=== PATIENT | female | born 1965 | race American Indian/Alaskan Native ===

== ENCOUNTER 2017-08-21 05:19 | Day surgery (SDC) | payer MEDICAID, OTHER ==
[2017-08-21] MEDS ORDERED: fentaNYL 100 MCG/2 ML SDV IV ONE ×4 (05:20→06:48)
[2017-08-21] MEDS ORDERED: Midazolam 1 MG/ML 2 ML SDV IV ONE ×7 (05:20→06:45)
[2017-08-21] MEDS ORDERED: Sodium Chloride 0.9% 10 ML Syringe FLUSH PRN (06:00)
[2017-08-21] MEDS ORDERED: Dextrose 5%-0.45% NaCl 1,000 ML IV SCH (06:00)
[2017-08-21] MEDS ORDERED: Midazolam 1 MG/ML 2 ML SDV ONE (06:02)
[2017-08-21] MEDS ORDERED: fentaNYL 100 MCG/2 ML SDV ONE (06:03)
[2017-08-21 09:52] VITALS: BP 141/82
--- NOTE | 2017-08-21 12:28 | OR ---
DATE: 08/21/2017 PROCEDURES: Total colonoscopy and cold snare polypectomy. INSTRUMENT USED: CF-H180 Olympus video panendoscope. PREMEDICATIONS: Fentanyl 150 mcg intravenous, Versed 4 mg intravenous. The procedure was done under pulse oximetry, BP recording, and powderman. INDICATION: The patient with rectal bleeding and Hemoccult-positive stools. Colonoscopic examination is done for detection of any polypoid lesions and removal, endoscopic hemostasis therapy if needed. DESCRIPTION OF PROCEDURE: Initial rectal exam was unremarkable. Rigid anoscopy showed small internal hemorrhoids without bleeding from them. The colonoscope was passed with ease. A 3-mm sized benign-appearing polyp was noted in the proximal sigmoid. Photograph was taken. Cold snare polypectomy was done. The tissue was retrieved and sent for histopathology. Few diverticula were noted in the distal left colon along with deformity. The scope was passed with ease up to the ileocecal area. Photographs were taken of the normal-appearing cecum identified by landmarks of appendiceal orifice and double- bulged ileocecal folds. No bleeding was noted from any of the visualized areas at the commencement of the examination. No stricture. No vascular ectasia. No large isolated ulcerations seen. No evidence of diffuse inflammatory bowel disease in the form of friability, contact bleeding, or ulcerations. Probing the proximal sides of folds and flexures, using adequate distention and clearing of the stool material, withdrawal of the scope was made. Cecum to rectum time over 6 minutes. No bleeding was noted from any of the visualized areas at the completion of examination. IMPRESSION: 1. Internal hemorrhoids. 2. Diminutive sigmoid polyp. 3. Diverticulosis. The patient tolerated the procedure well. [facility] /[id number]
--- NOTE | 2017-08-21 13:37 | LETTER ---
08/21/2017 Amy Mccormack NP [facility] [address] [place] [address] RE: BRIANNA SALAMANCA : 1965 Dear Ms. Mccormack: Ms. Brianna Salamanca had colonoscopic examination done this morning and she tolerated the procedure well. I herewith send a copy of the endoscopy note and photographs for your review. Thank you, Sincerely, [facility] /[id number]
== END 2017-08-21 08:39 | disposition home or self-care (01) ==
LOC: DL.ENDO 05:19
PROVIDERS: ATTEND Internal Medicine Gastroenterology
DX: D12.5 Benign neoplasm of sigmoid colon (principal); K64.8 Other hemorrhoids; K57.30 Diverticulosis of large intestine without perforation or abscess without bleeding
CPT/HCPCS: 45385; J2250; J3010; J7042

== ENCOUNTER 2017-11-10 17:27 | Inpatient (IN) | payer MEDICAID, OTHER ==
--- NOTE | 2017-11-10 20:43 | EDM.PDOC ---
ED HPI GENERAL MEDICAL PROBLEM - General Chief Complaint: Skin Complaint Stated Complaint: [id number] LEG IS BIG AND RED Time Seen by Provider: 11/10/17 23:20 Source of Information: Reports: Patient History Limitations: Reports: No Limitations - History of Present Illness INITIAL COMMENTS - FREE TEXT/NARRATIVE: Left leg redness x 2 days, worse pain tonight. difficulty walking, may have scratched lower matute while "looking for alternator".Chills tonight, no fever, Denies hx of skin infection. Prior remote surgery to to left ankle, hardware was removed Left Lower Leg Pain Score (Numeric/FACES): 8 - Related Data Allergies Allergy/AdvReac Type Severity Reaction Status Date / Time celecoxib [From Celebrex] Allergy Other Verified 11/10/17 23:13 naproxen Allergy Rash Verified 11/10/17 23:13 nitrofurantoin Allergy Rash Verified 11/10/17 23:13 Home Meds: Home Meds Carboxymethylcell/Glycerin/Pf [Refresh Optive Sensitive Drops] 1 drop EYEBOTH ASDIRECTED PRN 02/26/17 [History] Cetirizine HCl [24Hour Allergy] 10 mg PO DAILY 02/26/17 [History] Methyl Salicylate/Menth/Camph [Bengay Ultra Strength] 1 squirt TOP ASDIRECTED PRN 02/26/17 [History] Montelukast [Singulair] 10 mg PO BEDTIME 02/26/17 [History] Past Medical History - Past Health History Medical/Surgical History: Denies Medical/Surgical History HEENT History: Reports: Allergic Rhinitis Cardiovascular History: Reports: None Respiratory History: Reports: Asthma Gastrointestinal History: Reports: Chronic Diarrhea, Hepatitis, Other (See Below ) Other Gastrointestinal History: Hx of Hepatitis C. Genitourinary History: Reports: None OUTSIDE DELIVERER History: Reports: None Musculoskeletal History: Reports: Arthritis, Neck Pain, Chronic, Other (See Below) Other Musculoskeletal History: Degenerative Joint Disease. Neurological History: Reports: None Psychiatric History: Reports: None Endocrine/Metabolic History: Reports: None Hematologic History: Reports: None Immunologic History: Reports: None Oncologic (Cancer) History: Reports: None Dermatologic History: Reports: None - Infectious Disease History Infectious Disease History: Reports: Chicken Pox, Hepatitis C, Measles, Mumps - Past Surgical History Head Surgeries/Procedures: Reports: None HEENT Surgical History: Reports: None Cardiovascular Surgical History: Reports: None Respiratory Surgical History: Reports: None GI Surgical History: Reports: Appendectomy, Colonoscopy Female Surgical History: Reports: Section, Hysterectomy, Tubal Ligation Endocrine Surgical History: Reports: None Neurological Surgical History: Reports: None Musculoskeletal Surgical History: Reports: Other (See Below) Other Musculoskeletal Surgeries/Procedures:: Left Ankle Fx. Oncologic Surgical History: Reports: None Dermatological Surgical History: Reports: None Social & Family History - Family History Family Medical History: Noncontributory Oncologic: Reports: Breast, Colon, Prostate - Tobacco Use Smoking Status *Q: Never Smoker Second Hand Smoke Exposure: No - Caffeine Use Caffeine Use: Reports: Coffee, Soda, Tea Caffeine Use Comment: 1-2 cups daily - Alcohol Use Days Per Week of Alcohol Use: 0 - Recreational Drug Use Recreational Drug Use: No Drug Use in Last 12 Months: No ED ROS GENERAL - Review of Systems Review Of Systems: See Below Constitutional: Reports: Chills Respiratory: Reports: No Symptoms Cardiovascular: Reports: No Symptoms GI/Abdominal: Reports: No Symptoms Skin: Reports: Bruising, Erythema, Change in Color, Lumps Neurological: Reports: No Symptoms ED EXAM, SKIN/RASH Exam: See Below Exam Limited By: No Limitations General Appearance: Alert, Mild Distress Eye Exam: Bilateral Eye: EOMI Ears: Normal External Exam Nose: Normal Inspection Throat/Mouth: Normal Inspection, Normal Gums Head: Atraumatic, Normocephalic Neck: Normal Inspection, Full Range of Motion Respiratory/Chest: No Respiratory Distress, Lungs Clear, Normal Breath Sounds Cardiovascular: Normal Peripheral Pulses, Regular Rate, Rhythm GI/Abdominal: Normal Bowel Sounds, Soft Extremities: Pedal Edema, Leg Pain, Increased Warmth, Redness. No: Thao's Sign Neurological: Alert, Oriented, Normal Cognition Psychiatric: Normal Affect, Normal Mood Skin: Warm, Dry, Intact Characteristics: Other (anterior matute red warm to touch with streaking up inner knee, tenderabove ankle to above knee, no open area) Associated features: Warmth, Tenderness, Swelling, Induration, Inflammation Course - Vital Signs Last Recorded V/S: Last Vital Signs Temp 98.0 F 11/10/17 23:24 Pulse 77 11/10/17 23:24 Resp 16 11/10/17 23:24 BP 128/77 11/10/17 23:24 Pulse Ox 99 11/10/17 23:24 - Orders/Labs/Meds Orders: Active Orders 24 hr Category Date Time Status BASIC METABOLIC PANEL,BMP [CHEM] AM Lab 11/11/17 05:11 Ordered CBC WITH AUTO DIFF [HEME] AM Lab 11/11/17 05:15 Ordered CULTURE BLOOD [BC] Stat Lab 11/10/17 20:50 Received CULTURE BLOOD [BC] Stat Lab 11/10/17 20:55 Results DRUG SCREEN URINE BIORAD [URCHEM] Stat Lab 11/10/17 23:20 Ordered MAGNESIUM [CHEM] AM Lab 11/11/17 05:11 Ordered PHOSPHORUS [CHEM] AM Lab 11/11/17 05:11 Ordered UA W/MICROSCOPIC [URIN] Stat Lab 11/10/17 23:20 Ordered Blood Culture x2 Reflex Set [OM.PC] Stat Oth 11/10/17 20:38 Ordered Medication Orders Acetaminophen (Tylenol) 650 mg PO Q4H PRN PRN Reason: pain,. fever Heparin Sodium (Porcine) (Heparin Sodium) 5,000 units SUBCUT Q8HR ERICA Piperacillin Sod/Tazobactam (Sod 3.375 gm/ Sodium Chloride) 100 mls @ 200 mls/ hr IV Q6H [facility] Last Admin: 11/11/17 01:37 Dose: 200 mls/hr Vancomycin HCl 1 gm/ Sodium (Chloride) 250 mls @ 166.667 mls/hr IV Q8H [facility] Last Admin: 11/10/17 23:56 Dose: 166.667 mls/hr Oxycodone HCl (Oxycodone) 5 mg PO Q6H PRN PRN Reason: severe pain Sodium Chloride (Saline Flush) 10 ml FLUSH ASDIRECTED PRN PRN Reason: Keep Vein Open Vancomycin HCl (Pharmacy To Dose - Vancomycin) 1 dose .XX ASDIRECTED ERICA Zolpidem Tartrate (Ambien) 5 mg PO BEDTIME PRN PRN Reason: Sleep Last Admin: 11/11/17 00:01 Dose: 5 mg Labs: Laboratory Tests 11/10/17 11/10/17 11/10/17 Range/Units 20:50 20:50 20:50 WBC 12.9 H (5.0-10.0) 10^3/uL RBC 3.87 L (4.2-5.4) 10^6/uL Hgb 11.8 L (12.0-16.0) g/dL Hct 35.2 L (37.0-47.0) % MCV 91.0 (80-100) fL MCH 30.5 (27.0-34.0) pg MCHC 33.5 (33.0-35.0) g/dL Plt Count 238 (150-450) 10^3/uL Neut % (Auto) 76.4 H (42.2-75.2) % Lymph % (Auto) 12.7 L (20.5-50.1) % [place] % (Auto) 10.2 H (2-8) % Eos % (Auto) 0.5 L (1.0-3.0) % Baso % (Auto) 0.2 (0.0-1.0) % D-Dimer, Quantitative (0-400) ng/mL Sodium 133 L (135-145) mmol/L Potassium 2.6 L (3.6-5.0) mmol/L Chloride 100 L (101-111) mmol/L Carbon Dioxide 28.0 (21.0-31.0) mmol/L Anion Gap 7.6 BUN 7 (7-18) mg/dL Creatinine 0.5 L (0.6-1.3) mg/dL Est Cr Clr Drug Dosing 121.81 mL/min Estimated GFR (MDRD) > 60 BUN/Creatinine Ratio 14.00 Glucose 93 (74-105) mg/dL Lactic Acid 1.4 (0.5-2.2) mmol/L Calcium 8.5 (8.4-10.2) mg/dl Total Bilirubin 1.3 H (0.2-1.0) mg/dL AST 86 H (10-42) IU/L ALT 46 (10-60) IU/L Alkaline Phosphatase 65 (42-121) IU/L Total Protein 8.5 H (6.7-8.2) g/dl Albumin 3.2 (3.2-5.5) g/dl Globulin 5.3 Albumin/Globulin Ratio 0.60 Urine Color (YELLOW) Urine Appearance (CLEAR) Urine pH (5.0-9.0) Ur Specific [place] (1.005-1.030) Urine Protein (NEGATIVE) Urine Glucose (UA) (NEGATIVE) Urine Ketones (NEGATIVE) Urine Occult Blood (NEGATIVE) Urine Nitrite (NEGATIVE) Urine Bilirubin (NEGATIVE) Urine Urobilinogen (0.2-1.0) mg/dL Ur Leukocyte Esterase (NEGATIVE) Urine RBC /HPF Urine WBC (0-5/HPF) /HPF Ur Epithelial Cells /HPF Urine Bacteria (0-FEW/HPF) /HPF Urine Mucus /LPF Urine Opiates Screen (NEGATIVE) Ur Oxycodone Screen (NEGATIVE) Urine Methadone Screen (NEGATIVE) Ur Barbiturates Screen (NEGATIVE) U Tricyclic Antidepress (NEGATIVE) Ur Phencyclidine Scrn (NEGATIVE) Ur Amphetamine Screen (NEGATIVE) U Methamphetamines Scrn (NEGATIVE) Urine MDMA Screen (NEGATIVE) U Benzodiazepines Scrn (NEGATIVE) Urine Cocaine Screen (NEGATIVE) U Marijuana (THC) Screen (NEGATIVE) 11/10/17 11/10/17 11/10/17 Range/Units 20:50 23:20 23:20 WBC (5.0-10.0) 10^3/uL RBC (4.2-5.4) 10^6/uL Hgb (12.0-16.0) g/dL Hct (37.0-47.0) % MCV (80-100) fL MCH (27.0-34.0) pg MCHC (33.0-35.0) g/dL Plt Count (150-450) 10^3/uL Neut % (Auto) (42.2-75.2) % Lymph % (Auto) (20.5-50.1) % [place] % (Auto) (2-8) % Eos % (Auto) (1.0-3.0) % Baso % (Auto) (0.0-1.0) % D-Dimer, Quantitative 300 (0-400) ng/mL Sodium (135-145) mmol/L Potassium (3.6-5.0) mmol/L Chloride (101-111) mmol/L Carbon Dioxide (21.0-31.0) mmol/L Anion Gap BUN (7-18) mg/dL Creatinine (0.6-1.3) mg/dL Est Cr Clr Drug Dosing mL/min Estimated GFR (MDRD) BUN/Creatinine Ratio Glucose (74-105) mg/dL Lactic Acid (0.5-2.2) mmol/L Calcium (8.4-10.2) mg/dl Total Bilirubin (0.2-1.0) mg/dL AST (10-42) IU/L ALT (10-60) IU/L Alkaline Phosphatase (42-121) IU/L Total Protein (6.7-8.2) g/dl Albumin (3.2-5.5) g/dl Globulin Albumin/Globulin Ratio Urine Color Yellow (YELLOW) Urine Appearance Slightly cloudy (CLEAR) Urine pH 6.5 (5.0-9.0) Ur Specific [place] 1.020 (1.005-1.030) Urine Protein Negative (NEGATIVE) Urine Glucose (UA) Negative (NEGATIVE) Urine Ketones 15 H (NEGATIVE) Urine Occult Blood Negative (NEGATIVE) Urine Nitrite Negative (NEGATIVE) Urine Bilirubin Small H (NEGATIVE) Urine Urobilinogen 4.0 H (0.2-1.0) mg/dL Ur Leukocyte Esterase Small H (NEGATIVE) Urine RBC 0-5 /HPF Urine WBC 10-20 H (0-5/HPF) /HPF Ur Epithelial Cells Moderate H /HPF Urine Bacteria Many H (0-FEW/HPF) /HPF Urine Mucus Moderate H /LPF Urine Opiates Screen Negative (NEGATIVE) Ur Oxycodone Screen Negative (NEGATIVE) Urine Methadone Screen Negative (NEGATIVE) Ur Barbiturates Screen Negative (NEGATIVE) U Tricyclic Antidepress Negative (NEGATIVE) Ur Phencyclidine Scrn Negative (NEGATIVE) Ur Amphetamine Screen Positive H (NEGATIVE) U Methamphetamines Scrn Positive H (NEGATIVE) Urine MDMA Screen Positive H (NEGATIVE) U Benzodiazepines Scrn Negative (NEGATIVE) Urine Cocaine Screen Negative (NEGATIVE) U Marijuana (THC) Screen Negative (NEGATIVE) Meds: Medications Generic Name Dose Route Start Last Admin Trade Name Freq PRN Reason Stop Dose Admin Acetaminophen 650 mg 11/10/17 23:33 Tylenol PO Q4H PRN pain,. fever Heparin Sodium (Porcine) 5,000 units 11/11/17 06:00 Heparin Sodium SUBCUT Q8HR ERICA Piperacillin Sod/Tazobactam 100 mls @ 200 mls/hr 11/10/17 23:30 11/11/17 01: 37 Sod 3.375 gm/ Sodium Chloride IV 200 mls/hr Q6H ERICA Administration Vancomycin HCl 1 gm/ Sodium 250 mls @ 166.667 mls/hr 11/11/17 00:00 11/10/17 23:56 Chloride IV 166.667 mls/hr Q8H ERICA Administration Oxycodone HCl 5 mg 11/10/17 23:24 Oxycodone PO Q6H PRN severe pain Sodium Chloride 10 ml 11/10/17 23:24 Saline Flush FLUSH ASDIRECTED PRN Keep Vein Open Vancomycin HCl 1 dose 11/10/17 23:30 Pharmacy To Dose - Vancomycin .XX ASDIRECTED ERICA Zolpidem Tartrate 5 mg 11/10/17 23:24 11/11/17 00:01 Ambien PO 5 mg BEDTIME PRN Administration Sleep Discontinued Medications Generic Name Dose Route Start Last Admin Trade Name Freq PRN Reason Stop Dose Admin Potassium Chloride 20 meq/ 100 mls @ 50 mls/hr 11/10/17 22:06 Premix IV 11/11/17 00:05 ONETIME ONE Potassium Chloride 10 meq/ 100 mls @ 100 mls/hr 11/10/17 22:06 11/10/17 22:18 Premix IV 11/10/17 23:05 100 mls/hr ONETIME ONE Administration Sodium Chloride 1,000 mls @ 250 mls/hr 11/10/17 22:12 11/10/17 22:18 Normal Saline IV 11/11/17 02:11 250 mls/hr .BOLUS ONE Administration Ibuprofen 400 mg 11/10/17 23:23 Motrin PO Q6H PRN moderate pain Potassium Chloride 20 meq 11/10/17 22:10 11/10/17 22:20 Klor-Con 10 PO 11/10/17 22:11 20 meq ONETIME ONE Administration Potassium Chloride 40 meq 11/10/17 23:21 11/10/17 23:47 Klor-Con 10 PO 11/10/17 23:22 40 meq ONETIME ONE Administration Departure - Departure Time of Disposition: 22:40 Disposition: Admitted As Inpatient 65 Condition: Undetermined Clinical Impression: Methamphetamine abuse, Hypokalemia Cellulitis Qualifiers: Site of cellulitis: extremity Site of cellulitis of extremity: lower extremity Laterality: left Qualified Code(s): L03.116 - Cellulitis of left lower limb - Discharge Information - My Orders Last 24 Hours: My Active Orders 11/10/17 20:38 Blood Culture x2 Reflex Set [OM.PC] Stat 11/10/17 20:50 CULTURE BLOOD [BC] Stat 11/10/17 20:55 CULTURE BLOOD [BC] Stat 11/10/17 23:20 DRUG SCREEN URINE BIORAD [URCHEM] Stat UA W/MICROSCOPIC [URIN] Stat - Assessment/Plan Last 24 Hours: My Active Orders 11/10/17 20:38 Blood Culture x2 Reflex Set [OM.PC] Stat 11/10/17 20:50 CULTURE BLOOD [BC] Stat 11/10/17 20:55 CULTURE BLOOD [BC] Stat 11/10/17 23:20 DRUG SCREEN URINE BIORAD [URCHEM] Stat UA W/MICROSCOPIC [URIN] Stat
[2017-11-10 21:41] LABS: CHLORIDE,CL 100 mmol/L (101-111); SODIUM,NA 133 mmol/L (135-145)
[2017-11-10] MEDS ORDERED: Potassium Chloride 20 MEQ in Premix Bag 1 BAG IV ONE (22:06)
[2017-11-10] MEDS ORDERED: Potassium Chloride 10 MEQ in Premix Bag 1 BAG IV ONE (22:06)
[2017-11-10] MEDS ORDERED: Potassium Chloride 10 MEQ Tab.ER PO ONE ×2 (22:10→23:21)
[2017-11-10] MEDS ORDERED: Sodium Chloride 0.9% 1,000 ML IV ONE (22:12)
[2017-11-10] MEDS ORDERED: Ibuprofen 400 MG Tab PO PRN (23:23)
[2017-11-10] MEDS ORDERED: Acetaminophen 325 MG Tab PO PRN (23:33)
--- NOTE | 2017-11-10 23:33 | PCM.HP ---
H&P History of Present Illness - General Date of Service: 11/10/17 Admit Problem/Dx: Admission Diagnosis/Problem Admission Diagnosis/Problem Cellulitis Source of Information: Patient History Limitations: Reports: No Limitations - History of Present Illness Initial Comments - Free Text/Narative: The patient is a 52-year-old lady with a history of arthritis. The patient developed left lower extremity swelling associated with pain, redness. This started the 3-4 days prior to admission. The patient went feels that she might have hit the anterior matute area. Small bruise was noted. No associated fever. The redness and swelling has been worsening in the past few days and the patient came into the emergency room. No chest pain, no shortness of breath, no abdominal pain. Left Lower Leg Pain Score (Numeric/FACES): 8 - Related Data Allergies/Adverse Reactions: Allergies Allergy/AdvReac Type Severity Reaction Status Date / Time celecoxib [From Celebrex] Allergy Other Verified 11/10/17 23:13 naproxen Allergy Rash Verified 11/10/17 23:13 nitrofurantoin Allergy Rash Verified 11/10/17 23:13 Home Medications: Home Meds Carboxymethylcell/Glycerin/Pf [Refresh Optive Sensitive Drops] 1 drop EYEBOTH ASDIRECTED PRN 02/26/17 [History] Cetirizine HCl [24Hour Allergy] 10 mg PO DAILY 02/26/17 [History] Methyl Salicylate/Menth/Camph [Bengay Ultra Strength] 1 squirt TOP ASDIRECTED PRN 02/26/17 [History] Montelukast [Singulair] 10 mg PO BEDTIME 02/26/17 [History] Past Medical History - Past Health History Medical/Surgical History: Denies Medical/Surgical History HEENT History: Reports: Allergic Rhinitis Cardiovascular History: Reports: None Respiratory History: Reports: Asthma Gastrointestinal History: Reports: Chronic Diarrhea, Hepatitis, Other (See Below ) Other Gastrointestinal History: Hx of Hepatitis C. Genitourinary History: Reports: None [employer] History: Reports: None Musculoskeletal History: Reports: Arthritis, Neck Pain, Chronic, Other (See Below) Other Musculoskeletal History: Degenerative Joint Disease. Neurological History: Reports: None Psychiatric History: Reports: None Endocrine/Metabolic History: Reports: None Hematologic History: Reports: None Immunologic History: Reports: None Oncologic (Cancer) History: Reports: None Dermatologic History: Reports: None - Infectious Disease History Infectious Disease History: Reports: Chicken Pox, Hepatitis C, Measles, Mumps - Past Surgical History Head Surgeries/Procedures: Reports: None HEENT Surgical History: Reports: None Cardiovascular Surgical History: Reports: None Respiratory Surgical History: Reports: None GI Surgical History: Reports: Appendectomy, Colonoscopy Female Surgical History: Reports: Section, Hysterectomy, Tubal Ligation Endocrine Surgical History: Reports: None Neurological Surgical History: Reports: None Musculoskeletal Surgical History: Reports: Other (See Below) Other Musculoskeletal Surgeries/Procedures:: Left Ankle Fx. Oncologic Surgical History: Reports: None Dermatological Surgical History: Reports: None Social & Family History - Family History Family Medical History: Noncontributory Oncologic: Reports: Breast, Colon, Prostate - Tobacco Use Smoking Status *Q: Never Smoker Second Hand Smoke Exposure: No - Caffeine Use Caffeine Use: Reports: Coffee, Soda, Tea Caffeine Use Comment: 1-2 cups daily - Alcohol Use Days Per Week of Alcohol Use: 0 - Recreational Drug Use Recreational Drug Use: No Drug Use in Last 12 Months: No H&P Review of Systems - Review of Systems: Review Of Systems: See Below General: Denies: Fever Pulmonary: Denies: Shortness of Breath Cardiovascular: Reports: Edema. Denies: Chest Pain Gastrointestinal: Denies: Abdominal Pain (Left leg) Genitourinary: Denies: Dysuria Skin: Reports: Other (Left lower extremity with swelling, redness, tenderness.) . Denies: Cyanosis Neurological: Denies: Confusion Exam - Exam Exam: See Below - Vital Signs Vital Signs: Last Vital Signs Temp 36.7 C 11/10/17 23:24 Pulse 77 11/10/17 23:24 Resp 16 11/10/17 23:24 BP 128/77 11/10/17 23:24 Pulse Ox 99 11/10/17 23:24 Weight: 86.863 kg - Exam Quality Assessment: No: Supplemental Oxygen General: Alert, Oriented Neck: Supple Lungs: Clear to Auscultation, Normal Respiratory Effort Cardiovascular: Regular Rate, Regular Rhythm GI/Abdominal Exam: Normal Bowel Sounds, Soft, Non-Tender Extremities: Pedal Edema (Left lower extremity) - Patient Data Lab Results Last 24 hrs: Laboratory Results - last 24 hr 11/10/17 11/10/17 11/10/17 Range/Units 20:50 20:50 20:50 WBC 12.9 H (5.0-10.0) 10^3/uL RBC 3.87 L (4.2-5.4) 10^6/uL Hgb 11.8 L (12.0-16.0) g/dL Hct 35.2 L (37.0-47.0) % MCV 91.0 (80-100) fL MCH 30.5 (27.0-34.0) pg MCHC 33.5 (33.0-35.0) g/dL Plt Count 238 (150-450) 10^3/uL Neut % (Auto) 76.4 H (42.2-75.2) % Lymph % (Auto) 12.7 L (20.5-50.1) % [place] % (Auto) 10.2 H (2-8) % Eos % (Auto) 0.5 L (1.0-3.0) % Baso % (Auto) 0.2 (0.0-1.0) % D-Dimer, Quantitative (0-400) ng/mL Sodium 133 L (135-145) mmol/L Potassium 2.6 L (3.6-5.0) mmol/L Chloride 100 L (101-111) mmol/L Carbon Dioxide 28.0 (21.0-31.0) mmol/L Anion Gap 7.6 BUN 7 (7-18) mg/dL Creatinine 0.5 L (0.6-1.3) mg/dL Est Cr Clr Drug Dosing 121.81 mL/min Estimated GFR (MDRD) > 60 BUN/Creatinine Ratio 14.00 Glucose 93 (74-105) mg/dL Lactic Acid 1.4 (0.5-2.2) mmol/L Calcium 8.5 (8.4-10.2) mg/dl Total Bilirubin 1.3 H (0.2-1.0) mg/dL AST 86 H (10-42) IU/L ALT 46 (10-60) IU/L Alkaline Phosphatase 65 (42-121) IU/L Total Protein 8.5 H (6.7-8.2) g/dl Albumin 3.2 (3.2-5.5) g/dl Globulin 5.3 Albumin/Globulin Ratio 0.60 //18 Range/Units 20:50 WBC (5.0-10.0) 10^3/uL RBC (4.2-5.4) 10^6/uL Hgb (12.0-16.0) g/dL Hct (37.0-47.0) % MCV (80-100) fL MCH (27.0-34.0) pg MCHC (33.0-35.0) g/dL Plt Count (150-450) 10^3/uL Neut % (Auto) (42.2-75.2) % Lymph % (Auto) (20.5-50.1) % [place] % (Auto) (2-8) % Eos % (Auto) (1.0-3.0) % Baso % (Auto) (0.0-1.0) % D-Dimer, Quantitative 300 (0-400) ng/mL Sodium (135-145) mmol/L Potassium (3.6-5.0) mmol/L Chloride (101-111) mmol/L Carbon Dioxide (21.0-31.0) mmol/L Anion Gap BUN (7-18) mg/dL Creatinine (0.6-1.3) mg/dL Est Cr Clr Drug Dosing mL/min Estimated GFR (MDRD) BUN/Creatinine Ratio Glucose (74-105) mg/dL Lactic Acid (0.5-2.2) mmol/L Calcium (8.4-10.2) mg/dl Total Bilirubin (0.2-1.0) mg/dL AST (10-42) IU/L ALT (10-60) IU/L Alkaline Phosphatase (42-121) IU/L Total Protein (6.7-8.2) g/dl Albumin (3.2-5.5) g/dl Globulin Albumin/Globulin Ratio Result Diagrams: 11/10/17 20:50 11/10/17 20:50 Iker Results Last 24 hrs: Microbiology 11/10/17 20:55 Anaerobic Blood Culture - Final Blood - Venous - Lab Draw - Problem List (1) Cellulitis SNOMED Code(s): 579907167 ICD Code: L03.90 - CELLULITIS, UNSPECIFIED Status: Acute Current Visit: Yes (2) Hypokalemia SNOMED Code(s): 39216394 ICD Code: E87.6 - HYPOKALEMIA Status: Acute Current Visit: Yes Problem List Initiated/Reviewed/Updated: Yes Orders Last 24hrs: Active Orders 24 hr Category Date Time Status Patient Status [ADT] Routine ADT 11/10/17 23:24 Ordered Oxygen Therapy [RC] PRN Care 11/10/17 23:24 Ordered Peripheral IV Care [RC] . DIRECTED Care 11/10/17 23:26 Ordered Up With Assistance [RC] ASDIRECTED Care 11/10/17 23:24 Ordered VTE/DVT Education [RC] PER UNIT ROUTINE Care 11/10/17 23:24 Ordered Vital Signs [RC] Q4H Care 11/10/17 23:24 Ordered Regular Diet [DIET] Diet 11/10/17 Breakfast Ordered BASIC METABOLIC PANEL,BMP [CHEM] AM Lab 11/11/17 05:15 Ordered CBC WITH AUTO DIFF [HEME] AM Lab 11/11/17 05:15 Ordered CULTURE BLOOD [BC] Stat Lab 11/10/17 20:50 Received CULTURE BLOOD [BC] Stat Lab 11/10/17 20:55 Results DRUG SCREEN URINE BIORAD [URCHEM] Stat Lab 11/10/17 22:09 Ordered MAGNESIUM [CHEM] AM Lab 11/11/17 05:11 Ordered PHOSPHORUS [CHEM] AM Lab 11/11/17 05:11 Ordered UA W/MICROSCOPIC [URIN] Stat Lab 11/10/17 22:09 Ordered Heparin Sodium Med 11/11/17 06:00 Ordered 5,000 units SUBCUT Q8HR Ibuprofen [Motrin] Med 11/10/17 23:23 Ordered 400 mg PO Q6H PRN Piperacillin/Tazobactam [Zosyn] 3.375 gm Med 11/10/17 23:30 Ordered Sodium Chloride 0.9% [Normal Saline] 100 ml IV Q6H Sodium Chloride 0.9% [Normal Saline] 1,000 ml Med 11/10/17 22:12 Active IV .BOLUS Sodium Chloride 0.9% [Saline Flush] Med 11/10/17 23:24 Ordered 10 ml FLUSH ASDIRECTED PRN Vancomycin Pharmacy to Dose [Pharmacy to Dose - Med 11/10/17 23:30 Ordered Vancomycin] 1 dose .XX ASDIRECTED Zolpidem [Ambien] Med 11/10/17 23:24 Ordered 5 mg PO BEDTIME PRN oxyCODONE Med 11/10/17 23:24 Ordered 5 mg PO Q6H PRN Antiembolic Hose [OM.PC] Per Unit Routine Oth 11/10/17 23:25 Ordered Blood Culture x2 Reflex Set [OM.PC] Stat Oth 11/10/17 20:38 Ordered Peripheral IV Insertion Adult [OM.PC] Routine Oth 11/10/17 23:24 Ordered Saline Lock Insert [OM.PC] Routine Oth 11/10/17 23:24 Ordered Resuscitation Status Routine Resus Stat 11/10/17 23:24 Ordered Medication Orders Heparin Sodium (Porcine) (Heparin Sodium) 5,000 units SUBCUT Q8HR ERICA Sodium Chloride (Normal Saline) 1,000 mls @ 250 mls/hr IV .BOLUS ONE Stop: 11/11/17 02:11 Last Admin: 11/10/17 22:18 Dose: 250 mls/hr Piperacillin Sod/Tazobactam (Sod 3.375 gm/ Sodium Chloride) 100 mls @ 200 mls/ hr IV Q6H ERICA Ibuprofen (Motrin) 400 mg PO Q6H PRN PRN Reason: moderate pain Oxycodone HCl (Oxycodone) 5 mg PO Q6H PRN PRN Reason: severe pain Sodium Chloride (Saline Flush) 10 ml FLUSH ASDIRECTED PRN PRN Reason: Keep Vein Open Vancomycin HCl (Pharmacy To Dose - Vancomycin) 1 dose .XX ASDIRECTED ERICA Zolpidem Tartrate (Ambien) 5 mg PO BEDTIME PRN PRN Reason: Sleep Assessment/Plan Comment:: The patient is a 52-year-old lady with a history of arthritis. The patient developed left lower extremity swelling associated with pain, redness. This started the 3-4 days prior to admission. The patient went feels that she might have hit the anterior matute area. Small bruise was noted. No associated fever. The redness and swelling has been worsening in the past few days and the patient came into the emergency room. #1 left lower extremity cellulitis. There is associated swelling, redness. Will obtain blood cultures. The patient is from an area where MRSA is common. Will treat with Zosyn, vancomycin. #2 severe hypokalemia The patient already received IV supplement We will give further oral potassium supplement. Recheck electrolytes including potassium, magnesium, phosphorus in the morning. #3 DVT prophylaxis with subcutaneous heparin
[2017-11-11] MEDS: Zolpidem 5 MG Tab PO PRN (00:01)
[2017-11-11] MEDS: Piperacillin/Tazobactam 3.375 GM in Sodium Chloride 0.9% 100 ML IV SCH ×5 (01:37→20:10)
[2017-11-11] MEDS: Heparin Sodium 5,000 Units/ML Vial SUBCUT SCH ×3 (05:58→20:40)
[2017-11-11 07:07] LABS: CHLORIDE,CL 107 mmol/L (101-111); SODIUM,NA 138 mmol/L (135-145)
[2017-11-11] MEDS: Vancomycin 1 GM SDV ONE ×3 (09:35→14:12)
[2017-11-11] MEDS: Sodium Chloride 0.9% 10 ML Syringe FLUSH PRN ×2 (09:40→18:29)
--- NOTE | 2017-11-11 11:41 | PCM.PN ---
- General Info Date of Service: 11/11/17 Admission Dx/Problem (Free Text): Admission Diagnosis/Problem Admission Diagnosis/Problem Cellulitis Subjective Update: Feeling better, the left lower extremity redness H was moderate has been improving. The redness started a few days prior to admission. There is mild to moderate associated pain. No significant drainage. the scab At the anterior matute area is improving. Functional Status: Reports: Pain Controlled - Review of Systems General: Denies: Fever, Weakness Pulmonary: Denies: Shortness of Breath Cardiovascular: Reports: Edema. Denies: Chest Pain Genitourinary: Denies: Dysuria Neurological: Denies: Confusion - Patient Data Vitals - Most Recent: Last Vital Signs Temp 36.3 C 11/11/17 11:03 Pulse 68 11/11/17 11:03 Resp 20 11/11/17 11:03 BP 107/72 11/11/17 11:03 Pulse Ox 97 11/11/17 11:03 Weight - Most Recent: 86.863 kg I&O - Last 24 Hours: Intake & Output 11/10/17 11/11/17 11/11/17 22:59 06:59 14:59 Intake Total 1465 465 Output Total 300 Balance 1165 465 Lab Results Last 24 Hours: Laboratory Results - last 24 hr 11/10/17 11/10/17 11/10/17 Range/Units 20:50 20:50 20:50 WBC 12.9 H (5.0-10.0) 10^3/uL RBC 3.87 L (4.2-5.4) 10^6/uL Hgb 11.8 L (12.0-16.0) g/dL Hct 35.2 L (37.0-47.0) % MCV 91.0 (80-100) fL MCH 30.5 (27.0-34.0) pg MCHC 33.5 (33.0-35.0) g/dL Plt Count 238 (150-450) 10^3/uL Neut % (Auto) 76.4 H (42.2-75.2) % Lymph % (Auto) 12.7 L (20.5-50.1) % [place] % (Auto) 10.2 H (2-8) % Eos % (Auto) 0.5 L (1.0-3.0) % Baso % (Auto) 0.2 (0.0-1.0) % D-Dimer, Quantitative (0-400) ng/mL Sodium 133 L (135-145) mmol/L Potassium 2.6 L (3.6-5.0) mmol/L Chloride 100 L (101-111) mmol/L Carbon Dioxide 28.0 (21.0-31.0) mmol/L Anion Gap 7.6 BUN 7 (7-18) mg/dL Creatinine 0.5 L (0.6-1.3) mg/dL Est Cr Clr Drug Dosing 121.81 mL/min Estimated GFR (MDRD) > 60 BUN/Creatinine Ratio 14.00 Glucose 93 (74-105) mg/dL Lactic Acid 1.4 (0.5-2.2) mmol/L Calcium 8.5 (8.4-10.2) mg/dl Phosphorus (2.5-4.6) mg/dL Magnesium (1.8-2.5) mg/dL Total Bilirubin 1.3 H (0.2-1.0) mg/dL AST 86 H (10-42) IU/L ALT 46 (10-60) IU/L Alkaline Phosphatase 65 (42-121) IU/L Total Protein 8.5 H (6.7-8.2) g/dl Albumin 3.2 (3.2-5.5) g/dl Globulin 5.3 Albumin/Globulin Ratio 0.60 Urine Color (YELLOW) Urine Appearance (CLEAR) Urine pH (5.0-9.0) Ur Specific Alexander (1.005-1.030) Urine Protein (NEGATIVE) Urine Glucose (UA) (NEGATIVE) Urine Ketones (NEGATIVE) Urine Occult Blood (NEGATIVE) Urine Nitrite (NEGATIVE) Urine Bilirubin (NEGATIVE) Urine Urobilinogen (0.2-1.0) mg/dL Ur Leukocyte Esterase (NEGATIVE) Urine RBC /HPF Urine WBC (0-5/HPF) /HPF Ur Epithelial Cells /HPF Urine Bacteria (0-FEW/HPF) /HPF Urine Mucus /LPF Urine Opiates Screen (NEGATIVE) Ur Oxycodone Screen (NEGATIVE) Urine Methadone Screen (NEGATIVE) Ur Barbiturates Screen (NEGATIVE) U Tricyclic Antidepress (NEGATIVE) Ur Phencyclidine Scrn (NEGATIVE) Ur Amphetamine Screen (NEGATIVE) U Methamphetamines Scrn (NEGATIVE) Urine MDMA Screen (NEGATIVE) U Benzodiazepines Scrn (NEGATIVE) Urine Cocaine Screen (NEGATIVE) U Marijuana (THC) Screen (NEGATIVE) 11/10/17 11/10/17 11/10/17 Range/Units 20:50 23:20 23:20 WBC (5.0-10.0) 10^3/uL RBC (4.2-5.4) 10^6/uL Hgb (12.0-16.0) g/dL Hct (37.0-47.0) % MCV (80-100) fL MCH (27.0-34.0) pg MCHC (33.0-35.0) g/dL Plt Count (150-450) 10^3/uL Neut % (Auto) (42.2-75.2) % Lymph % (Auto) (20.5-50.1) % [place] % (Auto) (2-8) % Eos % (Auto) (1.0-3.0) % Baso % (Auto) (0.0-1.0) % D-Dimer, Quantitative 300 (0-400) ng/mL Sodium (135-145) mmol/L Potassium (3.6-5.0) mmol/L Chloride (101-111) mmol/L Carbon Dioxide (21.0-31.0) mmol/L Anion Gap BUN (7-18) mg/dL Creatinine (0.6-1.3) mg/dL Est Cr Clr Drug Dosing mL/min Estimated GFR (MDRD) BUN/Creatinine Ratio Glucose (74-105) mg/dL Lactic Acid (0.5-2.2) mmol/L Calcium (8.4-10.2) mg/dl Phosphorus (2.5-4.6) mg/dL Magnesium (1.8-2.5) mg/dL Total Bilirubin (0.2-1.0) mg/dL AST (10-42) IU/L ALT (10-60) IU/L Alkaline Phosphatase (42-121) IU/L Total Protein (6.7-8.2) g/dl Albumin (3.2-5.5) g/dl Globulin Albumin/Globulin Ratio Urine Color Yellow (YELLOW) Urine Appearance Slightly cloudy (CLEAR) Urine pH 6.5 (5.0-9.0) Ur Specific Alexander 1.020 (1.005-1.030) Urine Protein Negative (NEGATIVE) Urine Glucose (UA) Negative (NEGATIVE) Urine Ketones 15 H (NEGATIVE) Urine Occult Blood Negative (NEGATIVE) Urine Nitrite Negative (NEGATIVE) Urine Bilirubin Small H (NEGATIVE) Urine Urobilinogen 4.0 H (0.2-1.0) mg/dL Ur Leukocyte Esterase Small H (NEGATIVE) Urine RBC 0-5 /HPF Urine WBC 10-20 H (0-5/HPF) /HPF Ur Epithelial Cells Moderate H /HPF Urine Bacteria Many H (0-FEW/HPF) /HPF Urine Mucus Moderate H /LPF Urine Opiates Screen Negative (NEGATIVE) Ur Oxycodone Screen Negative (NEGATIVE) Urine Methadone Screen Negative (NEGATIVE) Ur Barbiturates Screen Negative (NEGATIVE) U Tricyclic Antidepress Negative (NEGATIVE) Ur Phencyclidine Scrn Negative (NEGATIVE) Ur Amphetamine Screen Positive H (NEGATIVE) U Methamphetamines Scrn Positive H (NEGATIVE) Urine MDMA Screen Positive H (NEGATIVE) U Benzodiazepines Scrn Negative (NEGATIVE) Urine Cocaine Screen Negative (NEGATIVE) U Marijuana (THC) Screen Negative (NEGATIVE) 11/11/17 11/11/17 Range/Units 06:27 06:27 WBC 8.2 (5.0-10.0) 10^3/uL RBC 3.54 L (4.2-5.4) 10^6/uL Hgb 11.0 L (12.0-16.0) g/dL Hct 32.8 L (37.0-47.0) % MCV 92.7 (80-100) fL MCH 31.1 (27.0-34.0) pg MCHC 33.5 (33.0-35.0) g/dL Plt Count 202 (150-450) 10^3/uL Neut % (Auto) 72.8 (42.2-75.2) % Lymph % (Auto) 14.5 L (20.5-50.1) % [place] % (Auto) 11.1 H (2-8) % Eos % (Auto) 1.5 (1.0-3.0) % Baso % (Auto) 0.1 (0.0-1.0) % D-Dimer, Quantitative (0-400) ng/mL Sodium 138 (135-145) mmol/L Potassium 3.1 L (3.6-5.0) mmol/L Chloride 107 (101-111) mmol/L Carbon Dioxide 26.0 (21.0-31.0) mmol/L Anion Gap 8.1 BUN 5 L (7-18) mg/dL Creatinine 0.5 L (0.6-1.3) mg/dL Est Cr Clr Drug Dosing 121.81 mL/min Estimated GFR (MDRD) > 60 BUN/Creatinine Ratio Glucose 116 H (74-105) mg/dL Lactic Acid (0.5-2.2) mmol/L Calcium 7.9 L (8.4-10.2) mg/dl Phosphorus 3.5 (2.5-4.6) mg/dL Magnesium 1.7 L (1.8-2.5) mg/dL Total Bilirubin (0.2-1.0) mg/dL AST (10-42) IU/L ALT (10-60) IU/L Alkaline Phosphatase (42-121) IU/L Total Protein (6.7-8.2) g/dl Albumin (3.2-5.5) g/dl Globulin Albumin/Globulin Ratio Urine Color (YELLOW) Urine Appearance (CLEAR) Urine pH (5.0-9.0) Ur Specific Alexander (1.005-1.030) Urine Protein (NEGATIVE) Urine Glucose (UA) (NEGATIVE) Urine Ketones (NEGATIVE) Urine Occult Blood (NEGATIVE) Urine Nitrite (NEGATIVE) Urine Bilirubin (NEGATIVE) Urine Urobilinogen (0.2-1.0) mg/dL Ur Leukocyte Esterase (NEGATIVE) Urine RBC /HPF Urine WBC (0-5/HPF) /HPF Ur Epithelial Cells /HPF Urine Bacteria (0-FEW/HPF) /HPF Urine Mucus /LPF Urine Opiates Screen (NEGATIVE) Ur Oxycodone Screen (NEGATIVE) Urine Methadone Screen (NEGATIVE) Ur Barbiturates Screen (NEGATIVE) U Tricyclic Antidepress (NEGATIVE) Ur Phencyclidine Scrn (NEGATIVE) Ur Amphetamine Screen (NEGATIVE) U Methamphetamines Scrn (NEGATIVE) Urine MDMA Screen (NEGATIVE) U Benzodiazepines Scrn (NEGATIVE) Urine Cocaine Screen (NEGATIVE) U Marijuana (THC) Screen (NEGATIVE) Iker Results Last 24 Hours: Microbiology 11/10/17 20:55 Anaerobic Blood Culture - Final Blood - Venous - Lab Draw Med Orders - Current: Current Medications Acetaminophen (Tylenol) 650 mg PO Q4H PRN PRN Reason: pain,. fever Heparin Sodium (Porcine) (Heparin Sodium) 5,000 units SUBCUT Q8HR [facility] Last Admin: 11/11/17 05:58 Dose: 5,000 units Piperacillin Sod/Tazobactam (Sod 3.375 gm/ Sodium Chloride) 100 mls @ 200 mls/ hr IV Q6H [facility] Last Admin: 11/11/17 05:55 Dose: 200 mls/hr Vancomycin HCl 1 gm/ Sodium (Chloride) 250 mls @ 166.667 mls/hr IV Q8H [facility] Oxycodone HCl (Oxycodone) 5 mg PO Q6H PRN PRN Reason: severe pain Sodium Chloride (Saline Flush) 10 ml FLUSH ASDIRECTED PRN PRN Reason: Keep Vein Open Last Admin: 11/11/17 09:40 Dose: 10 ml Vancomycin HCl (Pharmacy To Dose - Vancomycin) 1 dose .XX ASDIRECTED [facility] Zolpidem Tartrate (Ambien) 5 mg PO BEDTIME PRN PRN Reason: Sleep Last Admin: 11/11/17 00:01 Dose: 5 mg Discontinued Medications Potassium Chloride 20 meq/ (Premix) 100 mls @ 50 mls/hr IV ONETIME ONE Stop: 11/11/17 00:05 Potassium Chloride 10 meq/ (Premix) 100 mls @ 100 mls/hr IV ONETIME ONE Stop: 11/10/17 23:05 Last Admin: 11/10/17 22:18 Dose: 100 mls/hr Sodium Chloride (Normal Saline) 1,000 mls @ 250 mls/hr IV .BOLUS ONE Stop: 11/11/17 02:11 Last Admin: 11/10/17 22:18 Dose: 250 mls/hr Vancomycin HCl 1 gm/ Sodium (Chloride) 250 mls @ 166.667 mls/hr IV Q8H [facility] Last Admin: 11/10/17 23:56 Dose: 166.667 mls/hr Ibuprofen (Motrin) 400 mg PO Q6H PRN PRN Reason: moderate pain Potassium Chloride (Klor-Con 10) 20 meq PO ONETIME ONE Stop: 11/10/17 22:11 Last Admin: 11/10/17 22:20 Dose: 20 meq Potassium Chloride (Klor-Con 10) 40 meq PO ONETIME ONE Stop: 11/10/17 23:22 Last Admin: 11/10/17 23:47 Dose: 40 meq Vancomycin HCl (Vancomycin) Confirm Administered Dose 1 gm .ROUTE .STK-MED ONE Stop: 11/11/17 09:33 Last Admin: 11/11/17 09:39 Dose: 1 gm - Exam General: Alert, Oriented Lungs: Clear to Auscultation, Normal Respiratory Effort Cardiovascular: Regular Rate, Regular Rhythm GI/Abdominal Exam: Normal Bowel Sounds, Soft, Non-Tender Extremities: Pedal Edema (Left lower extremity) Skin: Warm, Ecchymosis, Other (Redness of the left upper extremity) Neurological: No New Focal Deficit Psy/Mental Status: Alert, Normal Affect, Normal Mood - Problem List & Annotations (1) Cellulitis SNOMED Code(s): 772270235 Code(s): L03.90 - CELLULITIS, UNSPECIFIED Status: Acute Current Visit: Yes Qualifiers: Site of cellulitis: extremity Site of cellulitis of extremity: lower extremity Laterality: left Qualified Code(s): L03.116 - Cellulitis of left lower limb (2) Hypokalemia SNOMED Code(s): 29087777 Code(s): E87.6 - HYPOKALEMIA Status: Acute Current Visit: Yes - Problem List Review Problem List Initiated/Reviewed/Updated: Yes - My Orders Last 24 Hours: My Active Orders 11/10/17 23:20 CULTURE URINE [RM] Routine 11/10/17 23:24 Patient Status [ADT] Routine Oxygen Therapy [RC] PRN Up With Assistance [RC] ASDIRECTED VTE/DVT Education [RC] PER UNIT ROUTINE Vital Signs [RC] Q4H Sodium Chloride 0.9% [Saline Flush] 10 ml FLUSH ASDIRECTED PRN Zolpidem [Ambien] 5 mg PO BEDTIME PRN oxyCODONE 5 mg PO Q6H PRN Peripheral IV Insertion Adult [OM.PC] Routine Saline Lock Insert [OM.PC] Routine Resuscitation Status Routine 11/10/17 23:25 Antiembolic Hose [OM.PC] Per Unit Routine 11/10/17 23:26 Peripheral IV Care [RC] . DIRECTED 11/10/17 23:30 Piperacillin/Tazobactam [Zosyn] 3.375 gm Sodium Chloride 0.9% [Normal Saline] 100 ml IV Q6H Vancomycin Pharmacy to Dose [Pharmacy to Dose - Vancomycin] 1 dose .XX ASDIRECTED 11/10/17 23:33 Acetaminophen [Tylenol] 650 mg PO Q4H PRN 11/11/17 06:00 Heparin Sodium 5,000 units SUBCUT Q8HR 11/11/17 11:00 Vancomycin 1 gm Sodium Chloride 0.9% [Normal Saline] 250 ml IV Q8H 11/11/17 11:50 Magnesium Oxide 250 mg PO BIDM Potassium Chloride [Klor-Con 10] 40 meq PO BIDMEALS 11/12/17 05:15 BASIC METABOLIC PANEL,BMP [CHEM] AM CBC WITH AUTO DIFF [HEME] AM 11/12/17 07:30 VANCOMYCIN TROUGH [CHEM] Timed - Plan Plan:: The patient is a 52-year-old lady with a history of arthritis. The patient developed left lower extremity swelling associated with pain, redness. This started the 3-4 days prior to admission. The patient went feels that she might have hit the anterior matute area. Small bruise was noted. No associated fever. The redness and swelling has been worsening in the past few days and the patient came into the emergency room. #1 left lower extremity cellulitis. There is associated swelling, redness. blood cultures: pending The patient is from an area where MRSA is common. Will continue to treat with Zosyn, vancomycin. #2 severe hypokalemia Improving We will give further oral potassium supplement. Hypomagnesemia We'll replace Recheck electrolytes including potassium, magnesium, phosphorus in the morning. #3 DVT prophylaxis with subcutaneous heparin
[2017-11-11] MEDS: Potassium Chloride 10 MEQ Tab.ER PO SCH ×2 (12:45→17:15)
[2017-11-11] MEDS: oxyCODONE 5 MG Tab PO PRN (13:55)
[2017-11-12] MEDS: Piperacillin/Tazobactam 3.375 GM in Sodium Chloride 0.9% 100 ML IV SCH ×2 (01:38→08:19)
[2017-11-12] MEDS: Heparin Sodium 5,000 Units/ML Vial SUBCUT SCH ×4 (05:52→22:00)
[2017-11-12 07:14] LABS: CHLORIDE,CL 109 mmol/L (101-111); SODIUM,NA 136 mmol/L (135-145)
[2017-11-12] MEDS: Sodium Chloride 0.9% 10 ML Syringe FLUSH PRN ×4 (08:20→22:01)
[2017-11-12] MEDS: oxyCODONE 5 MG Tab PO PRN ×2 (09:59→18:34)
--- NOTE | 2017-11-12 11:21 | PCM.PN ---
- General Info Date of Service: 11/12/17 Admission Dx/Problem (Free Text): Admission Diagnosis/Problem Admission Diagnosis/Problem Cellulitis Subjective Update: No new complaints today. Still has redness and swelling of the left lower extremity. It has improved compared to yesterday. No nausea and no vomiting - Review of Systems General: Reports: Weakness Pulmonary: Reports: No Symptoms Cardiovascular: Reports: No Symptoms Gastrointestinal: Reports: No Symptoms, Abdominal Pain Musculoskeletal: Reports: Leg Pain Skin: Reports: Bruising - Patient Data Vitals - Most Recent: Last Vital Signs Temp 37.1 C 11/12/17 10:58 Pulse 67 11/12/17 10:58 Resp 17 11/12/17 10:58 BP 100/52 L 11/12/17 10:58 Pulse Ox 96 11/12/17 10:58 Weight - Most Recent: 86.863 kg I&O - Last 24 Hours: Intake & Output 11/11/17 11/12/17 11/12/17 22:59 06:59 14:59 Intake Total 1500 600 340 Output Total 1000 900 390 Balance 500 -300 -50 Lab Results Last 24 Hours: Laboratory Results - last 24 hr 11/12/17 11/12/17 11/12/17 Range/Units 06:25 06:25 10:28 WBC 7.0 (5.0-10.0) 10^3/uL RBC 3.62 L (4.2-5.4) 10^6/uL Hgb 11.2 L (12.0-16.0) g/dL Hct 34.6 L (37.0-47.0) % MCV 95.6 (80-100) fL MCH 30.9 (27.0-34.0) pg MCHC 32.4 L (33.0-35.0) g/dL Plt Count 224 (150-450) 10^3/uL Neut % (Auto) 64.5 (42.2-75.2) % Lymph % (Auto) 22.9 (20.5-50.1) % Hubbard % (Auto) 8.3 H (2-8) % Eos % (Auto) 4.0 H (1.0-3.0) % Baso % (Auto) 0.3 (0.0-1.0) % Sodium 136 (135-145) mmol/L Potassium 3.7 (3.6-5.0) mmol/L Chloride 109 (101-111) mmol/L Carbon Dioxide 24.0 (21.0-31.0) mmol/L Anion Gap 6.7 BUN 5 L (7-18) mg/dL Creatinine 0.5 L (0.6-1.3) mg/dL Est Cr Clr Drug Dosing 121.81 mL/min Estimated GFR (MDRD) > 60 Glucose 141 H (74-105) mg/dL Calcium 8.0 L (8.4-10.2) mg/dl Phosphorus 3.0 (2.5-4.6) mg/dL Magnesium 1.8 (1.8-2.5) mg/dL Vancomycin Trough 12.6 (10-15) ug/ml Iker Results Last 24 Hours: Microbiology 11/10/17 23:20 Urine Culture - Preliminary Urine, Clean Catch 11/10/17 20:55 Aerobic Blood Culture - Preliminary Blood - Venous - Lab Draw NO GROWTH AFTER 1 DAY Anaerobic Blood Culture - Final 11/10/17 20:50 Aerobic Blood Culture - Preliminary Blood - Venous NO GROWTH AFTER 1 DAY Anaerobic Blood Culture - Preliminary NO GROWTH AFTER 1 DAY Med Orders - Current: Current Medications Acetaminophen (Tylenol) 650 mg PO Q4H PRN PRN Reason: pain,. fever Heparin Sodium (Porcine) (Heparin Sodium) 5,000 units SUBCUT Q8HR [facility] Last Admin: 11/12/17 05:53 Dose: 5,000 units Vancomycin HCl 1 gm/ Sodium (Chloride) 250 mls @ 166.667 mls/hr IV Q8H [facility] Last Admin: 11/12/17 02:10 Dose: 166.667 mls/hr Piperacillin Sod/Tazobactam (Sod 3.375 gm/ Sodium Chloride) 100 mls @ 200 mls/ hr IV Q6H [facility] Last Admin: 11/12/17 08:19 Dose: 200 mls/hr Oxycodone HCl (Oxycodone) 5 mg PO Q6H PRN PRN Reason: severe pain Last Admin: 11/12/17 09:59 Dose: 5 mg Sodium Chloride (Saline Flush) 10 ml FLUSH ASDIRECTED PRN PRN Reason: Keep Vein Open Last Admin: 11/12/17 08:20 Dose: 10 ml Vancomycin HCl (Pharmacy To Dose - Vancomycin) 1 dose .XX ASDIRECTED [facility] Zolpidem Tartrate (Ambien) 5 mg PO BEDTIME PRN PRN Reason: Sleep Last Admin: 11/11/17 00:01 Dose: 5 mg Discontinued Medications Potassium Chloride 20 meq/ (Premix) 100 mls @ 50 mls/hr IV ONETIME ONE Stop: 11/11/17 00:05 Potassium Chloride 10 meq/ (Premix) 100 mls @ 100 mls/hr IV ONETIME ONE Stop: 11/10/17 23:05 Last Admin: 11/10/17 22:18 Dose: 100 mls/hr Sodium Chloride (Normal Saline) 1,000 mls @ 250 mls/hr IV .BOLUS ONE Stop: 11/11/17 02:11 Last Admin: 11/10/17 22:18 Dose: 250 mls/hr Piperacillin Sod/Tazobactam (Sod 3.375 gm/ Sodium Chloride) 100 mls @ 200 mls/ hr IV Q6H [facility] Last Infusion: 11/11/17 14:04 Dose: Infused Vancomycin HCl 1 gm/ Sodium (Chloride) 250 mls @ 166.667 mls/hr IV Q8H [facility] Last Admin: 11/11/17 09:35 Dose: 166.667 mls/hr Ibuprofen (Motrin) 400 mg PO Q6H PRN PRN Reason: moderate pain Magnesium Oxide (Magnesium Oxide) 250 mg PO BIDM [facility] Stop: 11/11/17 18:01 Last Admin: 11/11/17 17:15 Dose: 250 mg Potassium Chloride (Klor-Con 10) 20 meq PO ONETIME ONE Stop: 11/10/17 22:11 Last Admin: 11/10/17 22:20 Dose: 20 meq Potassium Chloride (Klor-Con 10) 40 meq PO ONETIME ONE Stop: 11/10/17 23:22 Last Admin: 11/10/17 23:47 Dose: 40 meq Potassium Chloride (Klor-Con 10) 40 meq PO BIDMEALS [facility] Stop: 11/11/17 18:01 Last Admin: 11/11/17 17:15 Dose: 40 meq Vancomycin HCl (Vancomycin) Confirm Administered Dose 1 gm .ROUTE .STK-MED ONE Stop: 11/11/17 09:33 Last Admin: 11/11/17 14:12 Dose: Not Given - Exam General: Alert, Oriented, Cooperative Neck: Supple, No Thyromegaly Lungs: Clear to Auscultation Cardiovascular: Regular Rate, Regular Rhythm Extremities: Leg Pain, Redness - Problem List Review Problem List Initiated/Reviewed/Updated: Yes - Plan Plan:: The patient is a 52-year-old lady with a history of arthritis. The patient developed left lower extremity swelling associated with pain, redness. This started the 3-4 days prior to admission. No associated fever. #1 left lower extremity cellulitis. There is associated swelling, redness. blood cultures: Negative so far The patient is from an area where MRSA is common. Will continue to treat with vancomycin. Discontinue Zosyn #2 severe hypokalemia Improving Replaced. Hypomagnesemia #3 DVT prophylaxis with subcutaneous heparin
--- NOTE | 2017-11-12 13:57 | US ---
CLINICAL HISTORY: 52-year-old female with swelling and redness left lower extremity. INTERPRETATION: No sign of intraluminal echogenic thrombus and normal compressibility deep veins of t he left groin, thigh, knee and calf. Satisfactory augmentation and venous waveforms demonstrated selectively in the popliteal vein behind the left knee and proximally in the femoral veins left lower extremity. Discrete 2.8 x 1.1 x 2.2 cm diameter avascular mixed density "mass" behind the left knee (Tucker's cys t). CONCLUSION: No current sonographic evidence deep vein thrombosis left lower extremity. Small Tucker's cyst.
[2017-11-12] MEDS: Zolpidem 5 MG Tab PO PRN (21:58)
[2017-11-13] MEDS: Sodium Chloride 0.9% 10 ML Syringe FLUSH PRN (03:06)
[2017-11-13] MEDS: Heparin Sodium 5,000 Units/ML Vial SUBCUT SCH (06:18)
[2017-11-13 07:58] VITALS: BP 121/79
--- NOTE | 2017-11-14 04:05 | DISCH ---
DATE OF SERVICE: 11/13/2017 ADMITTING DIAGNOSES: 1. Cellulitis to the left lower extremity. 2. Severe hypokalemia. DISCHARGE DIAGNOSES: 1. Cellulitis involving the left lower extremity, resolved on IV antibiotics. Changed to oral antibiotic at the time of discharge. 2. Severe hypokalemia, resolved. HISTORY OF PRESENTING ILLNESS: Ms. Jadyn Suazo is a 52-year-old female, with medical history significant for arthritis and had history of surgery to the left ankle in the past, admitted to the hospital with complaints of redness and swelling associated with pain to the left lower extremity, was present 3 to 4 days prior to admission. The patient was noted to have intense cellulitis involving the left lower extremity. She was also noted to have hypokalemia at the time of admission with potassium down to 2.6. The patient was admitted and was treated with IV antibiotics, and her potassium were replaced with potassium chloride. Her potassium is back to normal at this time. Her cellulitis is also resolved. The swelling has gone. The patient had ultrasound Doppler of the left lower extremity which did not show any evidence of DVT. She remained hemodynamically stable. She is discharged home in stable condition. We switched to oral Bactrim at the time of discharge. She will take the Bactrim for 5 more days. She was given Tylenol for pain control. She is advised to come back to the ER if she develops any fevers, chills, or increased pain or tenderness. She is educated to keep the left lower extremity elevated at all times. She is advised to follow with her primary care physician in the next 1 to 2 weeks of time. She is discharged home in stable condition. DISCHARGE MEDICATIONS: Include: 1. Tylenol 650 every 4 hours as needed for pain. 2. Optive Sensitive drops 1 drop eyes both as directed as needed for dry eyes. 3. Cetirizine 10 mg daily. 4. Bengay ultra strength as needed for muscle spasm. 5. Singulair 10 mg at bedtime. 6. Bactrim DS tablet 1 tablet twice a day for 5 days. PHYSICAL EXAMINATION: Vital Signs: On the day of discharge vitals; temperature of 98.1, pulse of 84, blood pressure 121/79, respiratory rate of 20, saturating at 99% on room air. General Appearance: The patient is awake, alert, and oriented to time, place, and person. Follows commands spontaneously. Cardiovascular System: S1, S2 heard with normal intensity. No gallops. Respiratory System: Clear to auscultation bilaterally. No wheeze. No crepitations. Abdomen: Soft. Bowel sounds positive. Nontender. No rigidity. Extremities: No edema in bilateral lower extremities. Neurology: No gross focal neurological deficit. CONDITION ON ADMISSION: Poor. CONDITION ON DISCHARGE: Stable next. ACTIVITY: As tolerated. DIET: Regular diet. FOLLOWUP: Follow up with primary care physician in the next 1 to 2 weeks of time. DISCHARGE INSTRUCTIONS: The patient is encouraged to keep the left lower extremity elevated to improve healing. Spent over 35 minutes of time in evaluating and treating this patient and making discharge plans. [facility] /[id number]
== END 2017-11-13 10:15 | disposition home or self-care (01) | DRG 603 ==
LOC: DL.ED 17:27 → DL.MS 22:43 → UNDOADMIN 22:43 → DL.MS 23:24 → EEVIPCON 23:24
PROVIDERS: ADMIT Internal Medicine; ATTEND Internal Medicine
DX: L03.116 Cellulitis of left lower limb (principal); E87.6 Hypokalemia; F15.10 Other stimulant abuse, uncomplicated; J30.9 Allergic rhinitis, unspecified; J45.909 Unspecified asthma, uncomplicated; K52.9 Noninfective gastroenteritis and colitis, unspecified; B19.20 Unspecified viral hepatitis C without hepatic coma; M19.90 Unspecified osteoarthritis, unspecified site; R53.1 Weakness; E83.42 Hypomagnesemia; G89.29 Other chronic pain; M79.605 Pain in left leg; M54.2 Cervicalgia; Z90.49 Acquired absence of other specified parts of digestive tract; Z88.1 Allergy status to other antibiotic agents; R26.2 Difficulty in walking, not elsewhere classified; R68.83 Chills (without fever); Z88.8 Allergy status to other drugs, medicaments and biological substances; Z79.899 Other long term (current) drug therapy; Z28.21 Immunization not carried out because of patient refusal
CPT/HCPCS: 36415; 73590; 80053; 80305; 81001; 83605; 85025; 85379; 87040 ×2; 87086; 99284; A9270; J3480; J7030; 80048; 80202; 83735; 84100; 93971; J1644; J2543; J3370; J7050

== ENCOUNTER 2020-01-20 19:03 | Emergency (ER) | payer MEDICAID, OTHER ==
[2020-01-20 19:09] VITALS: BP 141/95; PULSE 96
--- NOTE | 2020-01-20 19:15 | EDM.PDOC ---
ED HPI GENERAL MEDICAL PROBLEM - General Chief Complaint: Laceration Stated Complaint: BACK OF LEFT LEGG GASH Time Seen by Provider: 01/20/20 19:14 Source of Information: Reports: Patient, RN, RN Notes Reviewed History Limitations: Reports: No Limitations - History of Present Illness INITIAL COMMENTS - FREE TEXT/NARRATIVE: Presents to ER with complaint of gash to the left anterior matute. Patient states she was crawling over a barbed wire fence to take her dog down to the [place] to let it swim when she slipped on the grass catching it on the [place] wire fence. Patient states this happened just prior to arrival. Patient states she is up-to-date on her tetanus vaccination. Onset: Today, Sudden - Related Data Allergies Allergy/AdvReac Type Severity Reaction Status Date / Time celecoxib [From Celebrex] Allergy Other Verified 11/10/17 23:13 naproxen Allergy Rash Verified 11/10/17 23:13 nitrofurantoin Allergy Rash Verified 11/10/17 23:13 Home Meds: Home Meds Carboxymethylcell/Glycerin/Pf [Refresh Optive Sensitive Drops] 1 drop EYEBOTH ASDIRECTED PRN 02/26/17 [History] Cetirizine HCl [24Hour Allergy] 10 mg PO DAILY 02/26/17 [History] Methyl Salicylate/Menth/Camph [Bengay Ultra Strength] 1 squirt TOP ASDIRECTED PRN 02/26/17 [History] Montelukast [Singulair] 10 mg PO BEDTIME 02/26/17 [History] Acetaminophen [Tylenol] 650 mg PO Q4H PRN #30 tablet 11/13/17 [Rx] Sulfamethoxazole/Trimethoprim [Bactrim Ds Tablet] 1 each PO BID 5 Days #10 tablet 11/13/17 [Rx] Past Medical History - Past Health History Medical/Surgical History: Denies Medical/Surgical History HEENT History: Reports: Allergic Rhinitis Cardiovascular History: Reports: None Respiratory History: Reports: Asthma Gastrointestinal History: Reports: Chronic Diarrhea, Hepatitis, Other (See Below) Other Gastrointestinal History: Hx of Hepatitis C. Genitourinary History: Reports: None KETTLE COORDINATOR History: Reports: None Musculoskeletal History: Reports: Arthritis, Neck Pain, Chronic, Other (See Below) Other Musculoskeletal History: Degenerative Joint Disease. Neurological History: Reports: None Psychiatric History: Reports: None Endocrine/Metabolic History: Reports: None Hematologic History: Reports: None Immunologic History: Reports: None Oncologic (Cancer) History: Reports: None Dermatologic History: Reports: None Other Dermatologic History: right leg celllultis - Infectious Disease History Infectious Disease History: Reports: Chicken Pox, Hepatitis C, Measles, Mumps - Past Surgical History Head Surgeries/Procedures: Reports: None HEENT Surgical History: Reports: None Cardiovascular Surgical History: Reports: None Respiratory Surgical History: Reports: None GI Surgical History: Reports: Appendectomy, Colonoscopy Female Surgical History: Reports: Section, Hysterectomy, Tubal Ligation Endocrine Surgical History: Reports: None Neurological Surgical History: Reports: None Musculoskeletal Surgical History: Reports: Other (See Below) Other Musculoskeletal Surgeries/Procedures:: Left Ankle Fx. Oncologic Surgical History: Reports: None Dermatological Surgical History: Reports: None Social & Family History - Family History Family Medical History: Noncontributory Oncologic: Reports: Breast, Colon, Prostate - Tobacco Use Smoking Status *Q: Never Smoker Second Hand Smoke Exposure: No - Caffeine Use Caffeine Use: Reports: Coffee, Soda Caffeine Use Comment: 1-2 cups daily - Recreational Drug Use Recreational Drug Use: No ED ROS GENERAL - Review of Systems Review Of Systems: Comprehensive ROS is negative, except as noted in HPI. ED EXAM, SKIN/RASH Exam: See Below Exam Limited By: No Limitations General Appearance: Alert, WD/WN, No Apparent Distress Eye Exam: Bilateral Eye: EOMI, Normal Inspection Ears: Normal External Exam, Hearing Grossly Normal Nose: Normal Inspection Throat/Mouth: Normal Inspection, Normal Voice, No Airway Compromise Head: Atraumatic, Normocephalic Neck: Normal Inspection, Supple, Non-Tender, Full Range of Motion Respiratory/Chest: No Respiratory Distress, Lungs Clear, Normal Breath Sounds, No Accessory Muscle Use, Chest Non-Tender Cardiovascular: Normal Peripheral Pulses, Regular Rate, Rhythm, No Edema, No Gallop, No JVD, No Murmur, No Rub GI/Abdominal: Normal Bowel Sounds, Soft, Non-Tender (Female) Exam: Deferred Rectal (Female) Exam: Deferred Back Exam: Normal Inspection, Full Range of Motion, NT Extremities: Normal Inspection, Normal Range of Motion, Non-Tender, No Pedal Edema, Normal Capillary Refill Neurological: Alert, Oriented, CN II-XII Intact, Normal Cognition, Normal Gait, Normal Reflexes, No Motor/Sensory Deficits Psychiatric: Normal Affect, Normal Mood Skin: Warm, Dry, Other (4cm laceration anterior left matute) Location, Skin: Lower Extremity, Left Lymphatic: No Adenopathy ED SKIN PROCEDURES - Laceration/Wound Repair Left Lower Anterior Midline Leg Appearance: Subcutaneous Distal NVT: Neuro & Vascular Intact Anesthetic Type: Local Local Anesthesia - Lidocaine (Xylocaine): 1% Plain Local Anesthetic Volume: Other (12) Exploration/Debridement/Repair: Wound Explored, In a Bloodless Field, Explored to Base, No Foreign Material Found Closed with: Sutures Lac/Wound length In cm: 6 Suture Size: 4-0 # of Sutures: 7 Suture Type: Nylon, Interrupted Drain Placement: No Sterile Dressing Applied: Provider Tetanus Status Addressed: Yes Complications: No Course - Vital Signs Last Recorded V/S: Last Vital Signs Temp 98.2 F 01/20/20 19:09 Pulse 96 01/20/20 19:09 Resp 16 01/20/20 19:09 BP 141/95 H 01/20/20 19:09 Pulse Ox 100 01/20/20 19:09 - Orders/Labs/Meds Meds: Medications Discontinued Medications Generic Name Dose Route Start Last Admin Trade Name Tomasq PRN Reason Stop Dose Admin Bacitracin 1 dose 01/20/20 19:19 Bacitracin Oint 1 Gm TOP 01/20/20 19:20 ONETIME ONE Lidocaine HCl 30 ml 01/20/20 19:19 Xylocaine-Mpf 1% INJECT 01/20/20 19:20 ONETIME ONE Departure - Departure Time of Disposition: 19:51 Disposition: Home, Self-Care 01 Condition: Good Clinical Impression: Laceration - Discharge Information *PRESCRIPTION DRUG MONITORING PROGRAM REVIEWED*: No *COPY OF PRESCRIPTION DRUG MONITORING REPORT IN PATIENT DIONNE: No Instructions: Laceration Care, Adult, [id number], Sutures, Betsey, or Adhesive Wound Closure, [id number] Forms: ED Department Discharge Additional Instructions: Keep area clean and dry Follow-up with your primary care provider in 7 to 10 days to have sutures removed Monitor for any signs of infection, i.e. redness, swelling, drainage, fever or chills Sepsis Event Note (ED) - Evaluation Sepsis Screening Result: No Definite Risk - Focused Exam Vital Signs: Vital Signs Temp Pulse Resp BP Pulse Ox 01/20/20 19:09 98.2 F 96 16 141/95 H 100
[2020-01-20] MEDS ORDERED: Lidocaine 1% 30 ML SDV INJECT ONE (19:19)
[2020-01-20] MEDS ORDERED: Bacitracin Oint 1 GM U/D Packet TOP ONE (19:19)
== END 2020-01-20 19:54 | disposition home or self-care (01) ==
LOC: DL.ED 19:03
DX: S81.812A Laceration without foreign body, left lower leg, initial encounter (principal); Z88.8 Allergy status to other drugs, medicaments and biological substances; Z88.6 Allergy status to analgesic agent; J45.909 Unspecified asthma, uncomplicated; W26.8XXA Contact with other sharp object(s), not elsewhere classified, initial encounter; Y92.828 Other wilderness area as the place of occurrence of the external cause
CPT/HCPCS: 12002; 99282; J2001

== ENCOUNTER 2023-02-09 16:14 | Emergency (ER) | payer MEDICAID ==
[2023-02-09 16:38] VITALS: BP 140/78; PULSE 83
== END 2023-02-09 17:02 | disposition home or self-care (01) ==
LOC: DL.ED 16:14
DX: Z13.9 Encounter for screening, unspecified (principal); J45.909 Unspecified asthma, uncomplicated; Z88.1 Allergy status to other antibiotic agents; Z88.6 Allergy status to analgesic agent
CPT/HCPCS: 99282; 99283